=== PATIENT | male | born 1995 | race Two or more races ===

== ENCOUNTER 2024-09-17 23:14 | Emergency (ER) | payer OTHER ==
[~2024-09-17] VITALS: Ht 177.8 cm; Wt 88.0 kg
[2024-09-17 23:22] VITALS: BP 121/70; PULSE 69; RESP 18; TEMP 36.7; O2SAT 96
== END 2024-09-17 23:31 | disposition home or self-care (01) ==
LOC: ER 23:14
DX: F10.129 Alcohol abuse with intoxication, unspecified (principal); F12.90 Cannabis use, unspecified, uncomplicated; F32.A Depression, unspecified; Y90.9 Presence of alcohol in blood, level not specified
CPT/HCPCS: 99283